=== PATIENT | female | born 1955 | race Caucasian/White ===

== ENCOUNTER 2017-02-09 15:34 | Emergency (ER) | payer BC ==
--- NOTE | ~2017-02-09 | CR181 ---
[facility] A Service [facility] RADIOLOGY TEXT RESULTS PATIENT: HARRY CORDERO LOCATION: [facility] : 55 UNIT #: [id number] AGE: [address]: Rachana Moulton MD SEX: F ORDER DR: [id number] [address] [address] [id number] E MR#: [id number] Acc #: [id number] NAME: HARRY CORDERO : 1955 SEX: F STUDY DATE/TIME: 02/09/2017 14:56 UNIT: SED ROOM: STUDY DESCRIPTION: CR Lumbar Spine 2 or 3 Views Attending Physician: Rachana Moulton M.D. Ordering Physician: Rachana Moulton M.D. MEDICAL IMAGING REPORT This report is preliminary unless electronic signature is present. EXAM Lumbar series 02/09/2017 INDICATIONS 61-year-old female with radiculopathy, lower back pain since yesterday. No known injury. 2 views of the lumbar spine. COMPARISON STUDIES No comparisons FINDINGS There is lumbar levoscoliosis. No acute fracture. Alignment is preserved. Degenerative disc disease at L4-5 and L3-4. Mild facet arthropathy in the lower lumbar levels. There is marginal osteophyte formation at L1-2 and T12-L1. Nonspecific calcification projects over the right lower quadrant. IMPRESSION Degenerative changes in the lumbar spine related to degenerative disc disease and to a lesser extent facet arthropathy. Mild levoscoliosis. Dictated by... Benjamin Liu M.D. THIS IS AN ELECTRONICALLY VERIFIED REPORT Benjamin Liu M.D. at 02/10/2017 7:30 AM Gen TD: 02/09/2017 17:39 JOB #: [id number] [facility] A Service [facility] RADIOLOGY TEXT RESULTS PATIENT: HARRY CORDERO LOCATION: [facility] : 55 UNIT #: [id number] AGE: [address]: Rachana Moulton MD SEX: F ORDER DR: MEDICAL IMAGING REPORT Page 1 of 1
[~2017-02-09 15:34] MED LIST: BENAZEPRIL HCL5 M1 PO; CHEWABLE ASPIRI81 MG PO; FISH OIL 1,001000 M2 PO; HYDROCODON-ACE1 EAC7 PO; IRON325 MG PO; OMEPRAZOLE20 M2 PO; VITAMIN D-32000 UNIT PO
== END 2017-02-09 17:42 | disposition home or self-care (01) ==
LOC: CED 15:34
DX: M54.42 Lumbago with sciatica, left side (principal)
CPT/HCPCS: 72100; 96372; 99283; J1170